=== PATIENT | female | born 1975 | race Caucasian/White ===

== ENCOUNTER 2020-03-21 14:57 | Outpatient (CLI) | payer MEDICAID, SELFPAY ==
--- NOTE | 2020-03-21 15:03 | XRR_ITS ---
PROCEDURE INFORMATION: Exam: XR Lumbosacral Spine, 2 or 3 Views Exam date and time: 03/21/2020 3:52 PM Age: 44 years old Clinical indication: Low back pain; Patient HX: Please comment on presence or absence of spinal instabililty; Additional info: Low back painx 2 years TECHNIQUE: Imaging protocol: XR of the lumbosacral spine, 2 or 3 views. COMPARISON: No relevant prior studies available. FINDINGS: Vertebrae: There is severe facet degenerative changes in the lower lumbar spine. The vertebral body heights are maintained. Small marginal osteophytes are noted throughout the lumbar spine greatest at L4. No instability with flexion or extension. No acute fracture. No spondylolysis. No spondylolisthesis. Soft tissues: Unremarkable. Other findings: No bony destructive lesion. XR/XR lumbar spine f/e only [id number] IMPRESSION: 1. No instability with flexion or extension. 2. Degenerative changes. No acute bony abnormality.
== END 2020-03-21 14:58 | disposition home or self-care (01) ==
LOC: RAD 15:01
PROVIDERS: Visit Provider Nurse Practitioner
DX: M54.5 Low back pain (principal)
CPT/HCPCS: 72120